=== PATIENT | female | born 1960 | race Hispanic/Latino ===

== ENCOUNTER 2017-12-04 16:18 | Emergency (ER) | payer SELFPAY ==
[2017-12-04 18:38] LABS: Absolute Lymphocytes (CBC) 1.3 K/uL (0.7-4.9); Absolute Monocytes 0.5 K/uL (0.1-1.3); Basophils % 0.4 % (0-1.3); Eosinophils % 0.4 % (0-4.4); Hematocrit 43.5 % (36.0-45.0); MCH 31.2 pg (27.0-35.0); MCV 92.8 fL (80-100); MPV 8.4 fL (7.6-11.3); Monocytes % 7.7 % (3.3-12.3); RBC Red Blood Cell Count 4.69 M/uL (3.86-4.86)
[2017-12-04 18:39] LABS: Protime INR 1.06
[2017-12-04 18:47] LABS: Bicarbonate 24 mEq/L (21-31); Glucose Level 108 mg/dL (65-120); Potassium 3.8 mEq/L (3.6-5.0); Sodium Level 137 mEq/L (135-145)
[2017-12-04 18:53] LABS: ALT/SGPT 19 IU/L (10-60); AST/SGOT 20 IU/L (10-42); Albumin 3.5 g/dL (3.2-5.5); Alkaline Phosphatase 50 IU/L (42-121); BUN Blood Urea Nitrogen 11 mg/dL (6-20); Bilirubin Direct 0.1 mg/dL (0-0.2); Bilirubin Total 0.6 mg/dL (0.3-1.2); Glomerular Filtration Rate > 90 mL/min (=/>90); Protein, Total 7.3 g/dL (6.0-8.3)
[2017-12-04 19:10] LABS: Alcohol Serum/Plasma < 10 mg/dl; Salicylates Level < 4.0 mg/dl (<30)
[2017-12-04 19:57] LABS: Barbiturates NEGATIVE; Benzodiazepines NEGATIVE; Cocaine NEGATIVE; METHAMPHETAM NEGATIVE; Opiates NEGATIVE; Phencyclidine NEGATIVE; THC Cannibis NEGATIVE
[2017-12-04 20:17] LABS: Urine Blood NEGATIVE (NEG); Urine Glucose NEGATIVE (NEG); Urine Protein NEGATIVE (NEG)
[2017-12-05] MEDS ORDERED: LORazepam 2 MG/ML VIAL ONE (00:44)
--- NOTE | 2017-12-05 10:50 | EKG ---
Test Date: 2017-12-04 Test Time: 19:16:28 [employer]: LORE MEASUREMENT RESULTS: Intervals: Rate: 78 ND: 128 QRSD: 84 QT: 420 QTc: 478 [place]: P: 44 ND: 128 QRS: 22 T: 26 INTERPRETIVE STATEMENTS: Normal sinus rhythm Possible Left atrial enlargement Nonspecific T wave abnormality Prolonged QT Abnormal ECG No previous ECG available for comparison Electronically Signed On 12-05-17 10:49:56 CDT by Janusz Preston
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
== END 2017-12-05 11:15 | disposition short-term general hospital (02) ==
LOC: ER 16:18
DX: R44.0 Auditory hallucinations (principal); Z72.0 Tobacco use
CPT/HCPCS: 36415; 80048; 80076; 80307; 80320; 80329; 81003; 81025; 85025; 85610; 85730; 93005; 96374; 99285

== ENCOUNTER 2017-12-14 00:52 | Emergency (ER) | payer SELFPAY ==
--- OUTSIDE RECORDS SUMMARY | 2017-12-14 00:55 | XMS REPORT | Clinical Summary ---
:1960 Author Organization [facility] Address [address] [place] [address] Care Team Providers Name Role Phone Asked, No Pcp Primary Care Provider Unavailable Allergies No Known Allergies Current Medications Prescription Sig. Disp. Refills Start Date End Date Status gabapentin Take 2 capsules 180 capsule 0 12/10/2017 01/09/2018 Active (NEURONTIN) 100 mg (200 mg total) capsuleIndications: by mouth 3 Anxiety (three) times a day for 30 days. hydrOXYzine (ATARAX) Take 1 tablet 30 tablet 0 12/10/2017 01/09/2018 Active 25 MG (25 mg total) by tabletIndications: mouth every 4 Anxiety (four) hours as needed for anxiety for up to 30 days. risperiDONE Take 1 tablet (2 30 tablet 0 12/10/2017 01/09/2018 Active (RisperDAL) 2 MG mg total) by tabletIndications: mouth nightly AH's for 30 days. traZODone (DESYREL) Take 1 tablet 30 tablet 0 12/10/2017 01/09/2018 Active 100 MG (100 mg total) tabletIndications: by mouth nightly insomnia associated as needed for with depression sleep for up to 30 days. nicotine polacrilex Chew 1 each (2 100 each 0 12/10/2017 01/09/2018 Active (NICORETTE) 2 mg mg total) every gumIndications: 1 (one) hour as Smoking Cessation needed for smoking cessation (nicotine cravings) for up to 30 days. Active Problems Problem Noted Date Psychosis 12/05/2017 Encounters Date Type Specialty Care Team Description 12/05/2017 - Hospital Encounter Psychiatry Kiarra Gunter MD 12/10/2017 Anam Bernard MD after 12/13/2016 Social History Tobacco Use Types Packs/Day Years Used Date Current Some Day Smoker Cigarettes 1 Started: 12/05/2013 Tobacco Cessation: Ready to Quit: No; Counseling Given: Yes Alcohol Use Drinks/Week oz/Week Comments Yes 4-6 Cans of beer 2.4 - 3.6 Sex Assigned at Date Recorded Not on file Last Filed Vital Signs Vital Sign Reading Time Taken Blood Pressure 139/85 12/10/2017 5:34 AM CDT Pulse 91 12/10/2017 5:34 AM CDT Temperature 36.5 C (97.7 F) 12/10/2017 5:34 AM CDT Respiratory Rate 18 12/09/2017 7:27 PM CDT Oxygen Saturation 96% 12/10/2017 5:34 AM CDT Inhaled Oxygen Concentration - - Weight 71.1 kg (156 lb 12.8 oz) 12/09/2017 6:15 AM CDT Height 152.4 cm (5') 12/05/2017 12:51 PM CDT Body Mass Index 30.62 12/09/2017 6:15 AM CDT Plan of Treatment Health Maintenance Due Date Last Done Comments PAP SMEAR 1980 COLONOSCOPY 2009 MAMMOGRAM 2009 INFLUENZA VACCINE 04/21/2017 Results Syphilis treponemal IgG (12/07/2017 7:00 AM) Component Value Ref Range Syphilis treponemal IgG Non-reactiveComment: Non-reactive: No Non-reactive serological evidence of Syphilis infection Specimen Performing Laboratory Serum [facility] DEPARTMENT OF PATHOLOGY AND GENOMIC MEDICINE [address] [place] [id number] Vitamin D 25 hydroxy level (12/07/2017 7:00 AM) Component Value Ref Range Vitamin D, 25-hydroxy 12.3 (L) 30.0 - 150.0 ng/mL Comment: This assay reports the sum of 25-hydroxy vitamin D3 and 25-hydroxy vitamin D2. Reference range: 0-17 years: Deficiency: less than 20ng/mL Optimum level: greater than or equal to 20 ng/mL. 18 years and older: Deficiency: less than 20ng/mL Insufficiency: 20-29 ng/mL Optimum Level: 30-80 ng/mL The assay reportable range is 3.4155.9 ng/mL. Levels higher than 150 ng/mL may be associated with toxicity. If toxicity is clinically suspected and the reported result is >155.9 ng/mL,contact lab for alternative methods to obtain a definitivelevel. If separate quantitation of 25-hydroxy vitamin D3 and 25-hydroxy vitamin D2 is needed, please contact lab for alternative methods. Specimen Performing Laboratory Blood [facility] [address] [place] [id number] HIV 1, 2 antibody (12/07/2017 7:00 AM) Component Value Ref Range HIV 1, 2 antibody Non-reactive Non-reactive Comment: Starting from December 18 2015, 4th generation HIV screening and confirmation assays are in use at [facility], consistent with the CDC-recommended algorithm. The screening test detects antibodies to HIV-1, HIV-2 and the p24 antigen. Positive screening results will be automatically reflexed to a HIV-1/HIV-2 differentiation assay. Indeterminant HIV-1 results will be further automatically reflexed to a nucleic acid test for detection of acute infection. Western blot will no longer be performed as a confirmation test. For a quick reference guide on the testing algorithm, please refer to: http://stacks.cdc.gov/view/cdc/51374. Specimen Performing Laboratory Blood [facility] [address] [place] [address] Folate level (12/07/2017 7:00 AM) Component Value Ref Range Folate 12.6 4.8 - 24.2 ng/mL Specimen Performing Laboratory Serum [facility] PATHOLOGY AND [address] [address] Vitamin B12 level (12/07/2017 7:00 AM) Component Value Ref Range Vitamin B12 >1600 (H) 211 - 946 pg/mL Comment: Significant overlap exists between normal and deficiency states. However, most patients with deficiencies will have Serum B12 <200 pg/mL. Specimen Performing Laboratory Serum [facility] DEPARTMENT OF PATHOLOGY AND GENOMIC MEDICINE [address] [place] [address] Head Wo Contrast (12/06/2017 12:54 PM) Specimen Performing Laboratory [facility] [address] [place] [address] Narrative EXAMINATION: CT HEAD WO CONTRAST CLINICAL HISTORY: CONFUSION DELERIUMALTERED LOCUNEXPLAINED COMPARISON:None TECHNIQUE: Noncontrast CT of the brain was performed from the skull base to the vertex. Both soft tissue and bone reconstruction algorithms are interpreted. CT imaging was performed with iterative reconstruction techniques and/or automated exposure control to reduce radiation dose. FINDINGS: No intracranial hemorrhage, extra-axial collection, or mass-effect is seen. No acute cortical infarct is identified. No hyperdense vessel is seen. There is paranasal sinus mucosal thickening with air-fluid levels. Mastoid air cells are clear. IMPRESSION: No acute intracranial abnormality identified. [facility]-[id number] Procedure Note [facility], Radiology Results Incoming - 12/06/2017 1:00 PM CDT EXAMINATION: CT HEAD WO CONTRAST CLINICAL HISTORY: CONFUSION DELERIUM ALTERED LOC UNEXPLAINED COMPARISON: None TECHNIQUE: Noncontrast CT of the brain was performed from the skull base to the vertex. Both soft tissue and bone reconstruction algorithms are interpreted. CT imaging was performed with iterative reconstruction techniques and/or automated exposure control to reduce radiation dose. FINDINGS: No intracranial hemorrhage, extra-axial collection, or mass-effect is seen. No acute cortical infarct is identified. No hyperdense vessel is seen. There is paranasal sinus mucosal thickening with air-fluid levels. Mastoid air cells are clear. IMPRESSION: No acute intracranial abnormality identified. [facility]-[id number] Thyroid stimulating hormone (12/06/2017 6:15 AM) Component Value Ref Range TSH 1.60 0.27 - 4.20 uIU/mL Specimen Performing Laboratory Plasma specimen [facility] DEPARTMENT OF PATHOLOGY AND GENOMIC MEDICINE [address] [place] [address] Hemoglobin A1c (12/06/2017 6:15 AM) Component Value Ref Range Hemoglobin A1C 5.7 (H) 4.0 - 5.6 % Comment: HbA1c cutoffs for diagnosing diabetes: 4.0% - 5.6%=normal 5.7% - 6.4%=increased risk for diabetes (prediabetes) >=6.5%=diabetes Goals for glycemic control (ADA 2016) < 7.0%Target for non adults with diabetes. More or less stringent targets may be appropriate for individual patients. <7.5% Target for Children and adolescents with type 1 diabetes. Specimen Performing Laboratory Blood [facility] DEPARTMENT OF PATHOLOGY AND GENOMIC MEDICINE [address] [place] [address] Lipid panel (12/06/2017 6:15 AM) Component Value Ref Range Cholesterol 137 <200 mg/dL Triglycerides 70 <150 mg/dL HDL cholesterol 43 >40 mg/dL LDL cholesterol 88Comment: Result obtained by direct LDL <100 mg/dL measurement Lipid panel interpretation SeeBelow Comment: Total Cholesterol (mg/dL) <200 Desirable [id number]-cqgs >=240High Triglycerides (mg/dL) <150 Normal 410-954Xqdcbymoms-[id number] 200-499High >=500Very high HDL Cholesterol (mg/dL) <40Low (male) <40Low (female) LDL Cholesterol (mg/dL) <100 Optimal 100-129Near or above optimal [phone]-nofr 160-189High >=190Very high Risk Catergories that modify LDL goals. Risk CatergoriesLDL goal (mg/dL) CHD and CHD risk equivalent<100 (10-year risk >20%) Multiple (2+) risk factors <130 (10-year risk=<20%) 0-1 risk factors <160 (<10-year risk) Defining levels of lipids in metabolic syndrome Triglycerides>=150 mg/dL HDL Cholesterol Men<40 mg/dL Women<40 mg/dL Non-HDL cholesterol is a second target for therapy in persons with high triglycerides (>=200 mg/dL) Specimen Performing Laboratory Plasma specimen [facility] DEPARTMENT OF PATHOLOGY AND GENOMIC MEDICINE [address] [place] [address] hCG qualitative, urine screen (12/05/2017 6:00 PM) Component Value Ref Range hCG qualitative, urine NegativeComment: Sensitivity of HCG test: 25 mIU/mL Specimen Performing Laboratory Urine [facility] DEPARTMENT OF PATHOLOGY AND GENOMIC MEDICINE [address] [place] [address] after 12/13/2016
[2017-12-14] MEDS ORDERED: ALBUTEROL 2.5 MG/3 ML NEB SOL ONE (02:17)
[2017-12-14] MEDS ORDERED: IPRATROPIUM BROM 0.5MG/2.5ML ONE (02:17)
[2017-12-14] MEDS ORDERED: METHYLPREDNISOLONE 125 MG INJ ONE (02:17)
[2017-12-14] MEDS ORDERED: HYDROCODONE/CHLORPHEN 5 ML/OSYR ONE (02:18)
[2017-12-14] MEDS ORDERED: NA CHLORIDE 0.9% 500 ML ONE (02:18)
[2017-12-14 02:23] LABS: Absolute Lymphocytes (CBC) 0.8 K/uL (0.7-4.9); Absolute Monocytes 0.6 K/uL (0.1-1.3); Absolute Neutrophil 3.3 K/uL (1.8-8.0); Basophils % 0.5 % (0-1.3); Eosinophils % 0.8 % (0-4.4); Hematocrit 40.4 % (36.0-45.0); Lymphocytes % 17.3 % (15.3-44.8); MCH 31.2 pg (27.0-35.0); MCV 90.8 fL (80-100); MPV 9.1 fL (7.6-11.3); Monocytes % 12.2 % (3.3-12.3); RBC Red Blood Cell Count 4.45 M/uL (3.86-4.86)
[2017-12-14 02:32] LABS: Potassium 3.3 mEq/L (3.6-5.0)
[2017-12-14 03:04] LABS: Arterial Blood Carboxyhemoglob 0.5 % (0-1.5); Blood Gas Oxyhemoglobin 90.8 % (94-97)
--- NOTE | 2017-12-14 03:16 | ER ---
Nurse's Notes [facility] Name: Lacey Gandara Age: 57 yrs Sex: Female : 1960 Arrival Date: 12/14/2017 Time: 00:55 Bed 5 Private MD: Diagnosis: Bronchitis. GERD Presentation: 12/14 01:12 Presenting complaint: Patient states: she has had a fever and cough for the past 20 aa1 days. Transition of care: patient was not received from another setting of care. Onset of symptoms was November 24, 2017. Care prior to arrival: None. 01:12 Method Of Arrival: Ambulatory aa1 01:12 Acuity: LEANDRO 3 aa1 Triage Assessment: 01:16 General: Appears in no apparent distress. comfortable, Behavior is calm, cooperative, aa1 appropriate for age. 02:17 Respiratory: Onset: The symptoms/episode began/occurred 21 days, the patient has ao moderate shortness of breath. Historical: - Allergies: 01:16 No Known Allergies; aa1 - Home Meds: 01:16 Trazodone Oral [Active]; gabapentin oral oral [Active]; Risperdal Oral [Active]; aa1 - PMHx: 01:16 Anxiety; psychiatric problems; aa1 - PSHx: 01:16 ; aa1 - Immunization history:: Flu vaccine is not up to date. - Social history:: Smoking status: Patient uses tobacco products, denies chronic smoking, but will smoke occasionally. Screenin:17 Abuse screen: Denies threats or abuse. Denies injuries from another. Nutritional ao screening: No deficits noted. Tuberculosis screening: No symptoms or risk factors identified. Fall Risk None identified. Assessment: 02:00 General: Appears in no apparent distress. comfortable, Behavior is calm, cooperative, ao appropriate for age. Pain: Complains of pain in chest from cough. Neuro: Level of Consciousness is awake, alert, obeys commands, Oriented to person, place, time, situation, Appropriate for age Moves all extremities. Speech is normal, Facial symmetry appears normal, Pupils are PERRLA. Cardiovascular: Heart tones Capillary refill < 3 seconds Patient's skin is warm and dry. Rhythm is regular. Respiratory: Airway is patent Respiratory effort is even, unlabored, Respiratory pattern is regular, symmetrical, Breath sounds are clear bilaterally. Respiratory: Reports shortness of breath cough that is productive. GI: Abdomen is round Bowel sounds present X 4 quads. : No signs and/or symptoms were reported regarding the genitourinary system. EENT: No signs and/or symptoms were reported regarding the EENT system. Derm: No signs and/or symptoms reported regarding the dermatologic system. Musculoskeletal: No signs and/or symptoms reported regarding the musculoskeletal system. 02:49 Reassessment: Patient appears in no apparent distress at this time. Patient and/or ao family updated on plan of care and expected duration. Pain level reassessed. Patient is alert, oriented x 3, equal unlabored respirations, skin warm/dry/pink. 03:43 Reassessment: Dc Instructions given to patient. Patient agree with the POC and to ao follow up with PCP. Vital Signs: 01:16 BP 141 / 79; Pulse 108; Resp 18; Temp 98.2; Pulse Ox 94% on R/A; Weight 66.22 kg; aa1 Height 5 ft. 5 in. (165.10 cm); Pain 0/10; 02:40 BP 124 / 68; Pulse 100; Resp 18; Pulse Ox 95% on R/A; Pain 0/10; ao 03:43 BP 116 / 66; Pulse 96; Resp 18; Pulse Ox 98% on R/A; Pain 0/10; ao 01:16 Body Mass Index 24.30 (66.22 kg, 165.10 cm) aa1 ED Course: 00:55 Patient arrived in ED. al2 01:13 Triage completed. aa1 01:16 Arm band placed on right wrist. Patient placed in waiting room, Patient notified of aa1 wait time. 01:35 Abdi Spivey, ROCIO is Primary Nurse. ao 01:41 Titi Aguilar MD is Attending Physician. pkl 02:08 Inserted saline lock: 20 gauge in right forearm, using aseptic technique. Blood ao collected. 02:13 XRAY CXR (1 view) Sent. ao 02:17 Patient has correct armband on for positive identification. Pulse ox on. NIBP on. ao 02:20 X-ray completed. Portable x-ray completed in exam room. Patient tolerated procedure kw well. 02:20 XRAY CXR (1 view) In Process Unspecified. EDMS 03:42 No provider procedures requiring assistance completed. IV discontinued, intact, ao bleeding controlled, No redness/swelling at site. Pressure dressing applied. Administered Medications: 02:12 Drug: NS 0.9% 1000 ml Route: IV; Rate: 125 ml/hr; Site: right forearm; ao 03:39 Follow up: IV Status: Completed infusion ao 02:12 Drug: Albuterol - atroVENT (3:1) (2.5 mg - 0.5 mg) 3 ml Route: Nebulizer; ao 03:16 Follow up: Response: No adverse reaction ao 02:12 Drug: SOLU-Medrol 125 mg Route: IVP; Site: right forearm; ao 03:16 Follow up: Response: No adverse reaction ao 02:12 Drug: Tussionex Pennkinetic ER 5 ml Route: PO; ao 03:16 Follow up: Response: No adverse reaction ao 03:28 Drug: Zithromax 500 mg Route: PO; ao 03:45 Follow up: Response: Medication administered at discharge. ao Outcome: 03:16 Discharge ordered by . pkl 03:43 Discharged to home ambulatory. ao 03:43 Condition: stable 03:43 Discharge instructions given to patient, Instructed on discharge instructions, follow up and referral plans. the need for admit, Demonstrated understanding of instructions, follow-up care, medications, Prescriptions given X 3. 03:44 Patient left the ED. ao Signatures: Dispatcher [employer] EDParisa Rangel RN RN aa1 Titi Aguilar MD MD pkl Whitley, Kimberlee kw Ortiz, Alex, RN RN ao Love, Angelica al2 Corrections: (The following items were deleted from the chart) 01:18 01:12 Acuity: LEANDRO 4 aa1 aa1
--- NOTE | 2017-12-14 03:16 | EDPHYS ---
Physician Documentation [facility] Name: Lacey Gandara Age: 57 yrs Sex: Female : 1960 Arrival Date: 12/14/2017 Time: 00:55 Bed 5 Private MD: ED Physician Titi Aguilar HPI: 12/14 01:50 This 57 yrs old Female presents to ER via Ambulatory with complaints of pkl Breathing Difficulty, Cough. 01:50 The patient or guardian reports cough, described as moderate, with productive sputum, pkl that is yellow, difficulty breathing. Onset: The symptoms/episode began/occurred 3 week(s) ago. Historical: - Allergies: 01:16 No Known Allergies; aa1 - Home Meds: 01:16 Trazodone Oral [Active]; gabapentin oral oral [Active]; Risperdal Oral [Active]; aa1 - PMHx: 01:16 Anxiety; psychiatric problems; aa1 - PSHx: 01:16 ; aa1 - Immunization history:: Flu vaccine is not up to date. - Social history:: Smoking status: Patient uses tobacco products, denies chronic smoking, but will smoke occasionally. ROS: 01:52 Eyes: Negative for injury, pain, redness, and discharge, ENT: Negative for injury, pkl pain, and discharge, Neck: Negative for injury, pain, and swelling, Cardiovascular: Negative for chest pain, palpitations, and edema. 01:52 Respiratory: Positive for cough, with yellow sputum, shortness of breath, wheezing. 01:52 Abdomen/GI: Negative for abdominal pain, nausea, vomiting, and diarrhea. 01:52 Back: Negative for acute changes. 01:52 : Negative for urinary symptoms. 01:52 MS/extremity: Negative for acute changes. 01:52 Skin: Negative for rash. 01:52 Neuro: Negative for altered mental status. Exam: 01:52 Head/Face: Normocephalic, atraumatic. Eyes: Pupils equal round and reactive to light, pkl extra-ocular motions intact. Lids and lashes normal. Conjunctiva and sclera are non-icteric and not injected. Cornea within normal limits. Periorbital areas with no swelling, redness, or edema. ENT: Nares patent. No nasal discharge, no septal abnormalities noted. Tympanic membranes are normal and external auditory canals are clear. Oropharynx with no redness, swelling, or masses, exudates, or evidence of obstruction, uvula midline. Mucous membranes moist. Neck: Trachea midline, no thyromegaly or masses palpated, and no cervical lymphadenopathy. Supple, full range of motion without nuchal rigidity, or vertebral point tenderness. No Meningismus. Chest/axilla: Normal chest wall appearance and motion. Nontender with no deformity. No lesions are appreciated. Cardiovascular: Regular rate and rhythm with a normal S1 and S2. No gallops, murmurs, or rubs. Normal PMI, no JVD. No pulse deficits. 01:52 Respiratory: the patient does not display signs of respiratory distress, Respirations: normal, Breath sounds: bronchial sounds, that are mild, are scattered. 01:52 Abdomen/GI: Bowel sounds: normal, Palpation: abdomen is soft and non-tender, in all quadrants. 01:52 Back: Exam negative for acute changes. 01:52 : Exam negative for acute changes. 01:52 Musculoskeletal/extremity: Exam is negative for acute changes. 01:52 Skin: Exam negative for rash. 01:52 Neuro: Orientation: is normal, Mentation: is normal, Cranial nerves: grossly normal, Motor: is normal. Vital Signs: 01:16 BP 141 / 79; Pulse 108; Resp 18; Temp 98.2; Pulse Ox 94% on R/A; Weight 66.22 kg; aa1 Height 5 ft. 5 in. (165.10 cm); Pain 0/10; 02:40 BP 124 / 68; Pulse 100; Resp 18; Pulse Ox 95% on R/A; Pain 0/10; ao 03:43 BP 116 / 66; Pulse 96; Resp 18; Pulse Ox 98% on R/A; Pain 0/10; ao 01:16 Body Mass Index 24.30 (66.22 kg, 165.10 cm) aa1 MDM: 01:41 Patient medically screened. pkl 03:15 Data reviewed: vital signs, nurses notes, lab test result(s), radiologic studies, plain pkl films. 12/14 01:49 Order name: CBC with Diff; Complete Time: 02:29 pkl 12/14 01:49 Order name: Chem 7; Complete Time: 02:49 pkl 12/14 01:49 Order name: Strep; Complete Time: 02:49 pkl 12/14 01:49 Order name: ABG; Complete Time: 03:14 pkl 12/14 01:49 Order name: XRAY CXR (1 view) pkl 12/14 03:16 Order name: Throat Culture EDMS 12/14 01:49 Order name: Saline Lock; Complete Time: 02:13 pkl Administered Medications: 02:12 Drug: NS 0.9% 1000 ml Route: IV; Rate: 125 ml/hr; Site: right forearm; ao 03:39 Follow up: IV Status: Completed infusion ao 02:12 Drug: Albuterol - atroVENT (3:1) (2.5 mg - 0.5 mg) 3 ml Route: Nebulizer; ao 03:16 Follow up: Response: No adverse reaction ao 02:12 Drug: SOLU-Medrol 125 mg Route: IVP; Site: right forearm; ao 03:16 Follow up: Response: No adverse reaction ao 02:12 Drug: Tussionex Pennkinetic ER 5 ml Route: PO; ao 03:16 Follow up: Response: No adverse reaction ao 03:28 Drug: Zithromax 500 mg Route: PO; ao 03:45 Follow up: Response: Medication administered at discharge. ao Disposition: 12/14/17 03:16 Discharged to Home. Impression: Bronchitis. GERD. - Condition is Stable. - Prescriptions for Protonix 40 mg Oral Tablet, Delayed Release (E.C.) - take 1 tablet by ORAL route once daily; 15 tablet. Zithromax Z- Michael 250 mg Oral Tablet - take 1 tablet by ORAL route as directed for 5 days Day 1 - take two (2) tablets one time. Day 2, 3, 4 , 5 take one (1) tablet once daily.; 6 tablet. Guaifenesin AC 10- 100 mg/5 mL Oral Liquid - take 10 milliliters by ORAL route every 8 hours As needed; 120 milliliter. - Medication Reconciliation Form, Thank You Letter, Antibiotic Education, Prescription Opioid Use form. - Follow up: Private Physician; When: 2 - 3 days; Reason: Re-evaluation by your physician. - Problem is new. - Symptoms have improved. Signatures: Dispatcher [facility] Parisa Dinh RN RN aa1 Titi Aguilar MD MD pkl Spivey, Abdi, RN RN ao Corrections: (The following items were deleted from the chart) 01:53 01:50 Eyes: Negative for injury, pain, redness, and discharge, ENT: Negative for pkl injury, pain, and discharge, Neck: Negative for injury, pain, and swelling, Cardiovascular: Negative for chest pain, palpitations, and edema, Respiratory: Negative for shortness of breath, cough, wheezing, and pleuritic chest pain, pkl
[2017-12-14] MEDS ORDERED: AZITHROMYCIN 250 MG TAB ONE (03:47)
--- NOTE | 2017-12-14 08:30 | RAD REPORT ---
EXAM DESCRIPTION: RAD - Chest Single View - 12/14/2017 6:55 am CLINICAL HISTORY: Cough COMPARISON: None. TECHNIQUE: AP portable chest image was obtained 0210 hours . FINDINGS: Lungs are clear. Heart and vasculature are normal. No measurable pleural effusion and no p neumothorax. No gross bony abnormality seen. No acute aortic findings suspected. IMPRESSION: No acute cardiopulmonary process.
== END 2017-12-14 03:44 | disposition home or self-care (01) ==
LOC: ER 00:52
DX: K21.9 Gastro-esophageal reflux disease without esophagitis; J40 Bronchitis, not specified as acute or chronic; F41.9 Anxiety disorder, unspecified; Z72.0 Tobacco use
CPT/HCPCS: 36415; 71045; 80048; 82805; 85025; 87070; 87081; 94640; 96361; 96374; 99284; J2930

== ENCOUNTER 2018-02-24 15:15 | Emergency (ER) | payer SELFPAY ==
--- OUTSIDE RECORDS SUMMARY | 2018-02-24 15:20 | XMS REPORT | Clinical Summary ---
:1960 Author Organization [facility] Address [address] [place] [address] Care Team Providers Name Role Phone Asked, No Pcp Primary Care Provider Unavailable Allergies No Known Allergies Current Medications Prescription Sig. Disp. Refills Start Date End Date Status gabapentin Take 2 capsules 180 capsule 0 12/10/2017 01/09/2018 (NEURONTIN) 100 mg (200 mg total) capsuleIndications: by mouth 3 Anxiety (three) times a day for 30 days. hydrOXYzine Take 1 tablet 30 tablet 0 12/10/2017 01/09/2018 (ATARAX) 25 MG (25 mg total) by tabletIndications: mouth every 4 Anxiety (four) hours as needed for anxiety for up to 30 days. risperiDONE Take 1 tablet (2 30 tablet 0 12/10/2017 01/09/2018 (RisperDAL) 2 MG mg total) by tabletIndications: mouth nightly AH's for 30 days. traZODone (DESYREL) Take 1 tablet 30 tablet 0 12/10/2017 01/09/2018 100 MG (100 mg total) tabletIndications: by mouth nightly insomnia associated as needed for with depression sleep for up to 30 days. nicotine polacrilex Chew 1 each (2 100 each 0 12/10/2017 01/09/2018 (NICORETTE) 2 mg mg total) every gumIndications: 1 (one) hour as Smoking Cessation needed for smoking cessation (nicotine cravings) for up to 30 days. Active Problems Problem Noted Date Psychosis 12/05/2017 Encounters Date Type Specialty Care Team Description 12/05/2017 - Hospital Encounter Psychiatry Kiarra Gunter MD 12/10/2017 Anam Bernard MD after 02/23/2017 Social History Tobacco Use Types Packs/Day Years [...] Health Maintenance Due Date Last Done Comments CERVICAL CANCER SCREENING 1980 BREAST CANCER SCREENING 2009 COLON CANCER SCREENING 2009 SHINGRIX VACCINE (#1) 2009 INFLUENZA VACCINE 04/21/2018 Results Syphilis treponemal IgG (12/07/2017 7:00 AM) Component Value Ref Range Syphilis treponemal IgG Non-reactiveComment: Non-reactive: No Non-reactive serological evidence of Syphilis infection Specimen Performing Laboratory Serum [facility] DEPARTMENT OF PATHOLOGY AND GENOMIC MEDICINE [address] [place] [phone] Vitamin D 25 hydroxy level (12/07/2017 7:00 [...] for alternative methods. Specimen Performing Laboratory Blood [facility] PATHOLOGY [facility] MEDICINE [address] [place] [id number] HIV 1, 2 antibody (12/07/2017 7:00 AM) Component Value Ref Range HIV 1, 2 antibody Non-reactive Non-reactive Comment: Starting from December 18 2015, 4th generation HIV screening and confirmation assays are in use at [facility], consistent with the CDC-recommended algorithm. [...] on the testing algorithm, please refer to: http://stacks.cdc.gov/view/cdc/45711. Specimen Performing Laboratory Blood [facility] DEPARTMENT OF PATHOLOGY AND [facility] MEDICINE [address] [place] [id number] Folate level (12/07/2017 7:00 AM) Component Value Ref Range Folate 12.6 4.8 - 24.2 ng/mL Specimen Performing Laboratory Serum [facility] OF PATHOLOGY AND [address] [address] Vitamin B12 level (12/07/2017 7:00 AM) Component Value Ref Range Vitamin B12 >1600 (H) 211 - 946 pg/mL Comment: Significant overlap exists between normal and deficiency states. However, most patients with deficiencies will have Serum B12 <200 pg/mL. Specimen Performing Laboratory Serum [facility] PATHOLOGY AND [facility] MEDICINE [address] [place] [phone] Head Wo Contrast (12/06/2017 12:54 PM) Specimen Performing Laboratory [address] [address] Narrative EXAMINATION: CT HEAD WO CONTRAST CLINICAL [...] clear. IMPRESSION: No acute intracranial abnormality identified. [facility]-[id number] Procedure Note Hm Interface, Radiology Results Incoming - 12/06/2017 1:00 PM [...] clear. IMPRESSION: No acute intracranial abnormality identified. [facility]-[id number] Thyroid stimulating hormone (12/06/2017 6:15 AM) Component Value Ref Range TSH 1.60 0.27 - 4.20 uIU/mL Specimen Performing Laboratory Plasma specimen [facility] DEPARTMENT OF PATHOLOGY AND GENOMIC MEDICINE [address] [place] [id number] Hemoglobin A1c (12/06/2017 6:15 AM) Component Value [...] type 1 diabetes. Specimen Performing Laboratory Blood [facility] DEPARTMENT OF PATHOLOGY AND GENOMIC MEDICINE [address] [place] [phone] Lipid panel (12/06/2017 6:15 AM) Component Value Ref Range Cholesterol 137 <200 mg/dL Triglycerides 70 <150 mg/dL HDL cholesterol 43 >40 mg/dL LDL cholesterol 88Comment: Result obtained by direct LDL <100 mg/dL measurement Lipid panel interpretation SeeBelow Comment: Total Cholesterol (mg/dL) <200 Desirable [id number] >=240High Triglycerides (mg/dL) <150 Normal [phone] 200-499High >=500Very high HDL Cholesterol (mg/dL) <40Low (male) <40Low (female) LDL Cholesterol (mg/dL) <100 Optimal 100-129Near or above optimal [phone]-bwoa 160-189High >=190Very high Risk Catergories that modify [...] (>=200 mg/dL) Specimen Performing Laboratory Plasma specimen [facility] DEPARTMENT OF PATHOLOGY AND GENOMIC MEDICINE [address] [place] [phone] hCG qualitative, urine screen (12/05/2017 6:00 PM) Component Value Ref Range hCG qualitative, urine NegativeComment: Sensitivity of HCG test: 25 mIU/mL Specimen Performing Laboratory Urine [facility] DEPARTMENT OF PATHOLOGY AND GENOMIC MEDICINE [address] [place] [phone] after 02/23/2017
[2018-02-24 16:26] LABS: Absolute Lymphocytes (CBC) 1.6 K/uL (0.7-4.9); Absolute Monocytes 0.5 K/uL (0.1-1.3); Absolute Neutrophil 5.5 K/uL (1.8-8.0); Basophils % 0.4 % (0-1.3); Eosinophils % 1.4 % (0-4.4); Hematocrit 41.4 % (36.0-45.0); MCH 30.3 pg (27.0-35.0); MCV 89.5 fL (80-100); MPV 9.2 fL (7.6-11.3); Monocytes % 6.2 % (3.3-12.3); RBC Red Blood Cell Count 4.62 M/uL (3.86-4.86)
[2018-02-24 16:32] LABS: Protime INR 0.88
[2018-02-24 16:36] LABS: Bicarbonate 25 mEq/L (21-31); Glucose Level 105 mg/dL (65-120); Potassium 3.4 mEq/L (3.6-5.0); Sodium Level 136 mEq/L (135-145)
[2018-02-24 16:41] LABS: ALT/SGPT 17 IU/L (10-60); AST/SGOT 17 IU/L (10-42); Albumin 3.8 g/dL (3.2-5.5); Alkaline Phosphatase 74 IU/L (42-121); BUN Blood Urea Nitrogen 19 mg/dL (6-20); Bilirubin Direct 0.1 mg/dL (0-0.2); Bilirubin Total 0.6 mg/dL (0.3-1.2); Protein, Total 6.8 g/dL (6.0-8.3)
[2018-02-24 16:44] LABS: Alcohol Serum/Plasma < 10 mg/dl
[2018-02-24 18:50] LABS: Urine Blood NEGATIVE (NEG); Urine Glucose NEGATIVE (NEG); Urine Protein NEGATIVE (NEG); Urine Specific Gravity 1.015 (1.005-1.030)
[2018-02-24 18:50] LABS: Barbiturates NEGATIVE (NEGATIVE); Benzodiazepines NEGATIVE (NEGATIVE); Cocaine NEGATIVE (NEGATIVE); METHAMPHETAM NEGATIVE (NEGATIVE); Opiates NEGATIVE (NEGATIVE); Phencyclidine NEGATIVE (NEGATIVE); THC Cannibis NEGATIVE (NEGATIVE)
[2018-02-24] MEDS ORDERED: POTASSIUM 25 MEQ EFFERV TAB ONE (21:09)
--- NOTE | 2018-02-24 22:38 | EKG ---
Test Date: 2018-02-24 Test Time: 15:48:25 [employer]: PRETTY MEASUREMENT RESULTS: Intervals: Rate: 64 PA: 124 QRSD: 80 QT: 444 QTc: 458 [place]: P: 55 PA: 124 QRS: 42 T: 4 INTERPRETIVE STATEMENTS: Normal sinus rhythm Possible Left atrial enlargement Nonspecific ST and T wave abnormality Abnormal ECG Compared to ECG 12/04/2017 19:16:28 ST (T wave) deviation now present T-wave abnormality no longer present Prolonged QT interval no longer present Electronically Signed On 02-24-18 22:38:26 CDT by Janusz Preston
[2018-02-25] MEDS ORDERED: POTASSIUM 25 MEQ EFFERV TAB ONE (03:24)
[2018-02-25] MEDS ORDERED: ACETAMINOPHEN 325 MG TABLET ONE (09:11)
--- NOTE | 2018-02-25 21:22 | ER ---
Nurse's Notes [facility] Name: Lacey Gandara Age: 57 yrs Sex: Female : 1960 Arrival Date: 02/24/2018 Time: 15:23 Bed 16 Private MD: Diagnosis: Suicide attempt;Suicidal ideations;Major depressive disorder, recurrent;Puerperal psychosis Presentation: 02/24 15:23 Presenting complaint: EMS states: patient was seen at the [facility] today, she is kr2 out of her medications and does not have any refills. She says she has been hearing voices for 1 week. She does not want to harm herself or anyone else but the voices have been telling her to harm herself. She takes Gabapentin, Risperidone, and Trazadone. Transition of care: patient was not received from another setting of care. Onset of symptoms was February 19, 2018. Risk Assessment: Do you want to hurt yourself or someone else? Patient reports desire/thoughts of hurting themselves or someone else. Provider notified. Initial Sepsis Screen: Does the patient meet any 2 criteria? No. Patient's initial sepsis screen is negative. Does the patient have a suspected source of infection? No. Patient's initial sepsis screen is negative. Care prior to arrival: None. 15:23 Method Of Arrival: EMS: [facility] kr2 15:23 Acuity: LEANDRO 3 kr2 Triage Assessment: 15:30 General: Appears in no apparent distress. comfortable, well groomed, well developed, kr2 well nourished, Behavior is calm, cooperative, appropriate for age. Pain: Denies pain. Historical: - Allergies: 15:28 No Known Allergies; kr2 - Home Meds: 15:28 gabapentin Oral [Active]; Risperdal Oral [Active]; Trazodone Oral [Active]; kr2 - PMHx: 15:28 Anxiety; psychiatric problems; kr2 - PSHx: 15:28 ; kr2 - Immunization history:: Adult Immunizations unknown. - Social history:: Smoking status: Patient/guardian denies using tobacco. - Ebola Screening: : No symptoms or risks identified at this time. Screenin:27 Abuse screen: Denies threats or abuse. Denies injuries from another. Nutritional kr2 screening: No deficits noted. Tuberculosis screening: No symptoms or risk factors identified. Fall Risk None identified. Assessment: 15:30 General: Appears in no apparent distress. comfortable, well groomed, well developed, kr2 well nourished, Behavior is calm, cooperative, appropriate for age. Pain: Denies pain. Neuro: Level of Consciousness is awake, alert, obeys commands, Oriented to person, place, time, situation, Appropriate for age. Cardiovascular: Capillary refill < 3 seconds in bilateral fingers Patient's skin is warm and dry. Respiratory: Airway is patent Respiratory effort is even, unlabored, Respiratory pattern is regular, symmetrical. GI: Abdomen is flat, non-distended. : Denies burning with urination. EENT: Oral mucosa is moist. Derm: Skin is intact, is healthy with good turgor, Skin is pink, warm \\T\\ dry. Musculoskeletal: Circulation, motion, and sensation intact. 15:30 Reassessment: Patient states she hears voices of multiple people telling her to harm kr2 herself in different ways. 16:30 Reassessment: Patient appears in no apparent distress at this time. Patient and/or kr2 family updated on plan of care and expected duration. Pain level reassessed. Patient is alert, oriented x 3, equal unlabored respirations, skin warm/dry/pink. Patient denies pain at this time. 17:30 Reassessment: Patient appears in no apparent distress at this time. Patient and/or kr2 family updated on plan of care and expected duration. Pain level reassessed. Patient is alert, oriented x 3, equal unlabored respirations, skin warm/dry/pink. Patient denies pain at this time. 18:30 Reassessment: Patient appears in no apparent distress at this time. Patient and/or kr2 family updated on plan of care and expected duration. Pain level reassessed. Patient is alert, oriented x 3, equal unlabored respirations, skin warm/dry/pink. Patient denies pain at this time. 19:30 Reassessment: No changes from previously documented assessment. kr2 21:02 Reassessment: No changes from previously documented assessment. Provided patient a kr2 sandwich and drink. 02/25 00:26 Reassessment: Patient appears in no apparent distress at this time. Patient and/or kr2 family updated on plan of care and expected duration. Pain level reassessed. Patient is alert, oriented x 3, equal unlabored respirations, skin warm/dry/pink. Surgeon/President here from [facility] for evaluation of patient. ROCIO Patton assisting with syriac translation. 02:10 Reassessment: Report received from ROCIO Teran Traveler. bs1 02:10 General: Appears in no apparent distress. comfortable, Behavior is calm, cooperative, bs1 appropriate for age. Pain: Denies pain. Neuro: Level of Consciousness is awake, alert, obeys commands, Oriented to person, place, time. Neuro: patient hearing voices. Cardiovascular: Denies chest pain, shortness of breath, Heart tones S1 S2 present Capillary refill < 3 seconds Patient's skin is warm and dry. Respiratory: Airway is patent Trachea midline Respiratory effort is even, unlabored, Respiratory pattern is regular, symmetrical, Breath sounds are clear bilaterally. GI: Abdomen is flat, non-distended. : No signs and/or symptoms were reported regarding the genitourinary system. EENT: Oral mucosa is moist. Derm: Skin is intact, is healthy with good turgor, Skin is pink, warm \\T\\ dry. Musculoskeletal: Circulation, motion, and sensation intact. 03:45 Reassessment: Patient and/or family updated on plan of care and expected duration. Pain bs1 level reassessed. Patient is alert, oriented x 3, equal unlabored respirations, skin warm/dry/pink. 05:00 Reassessment: No changes from previously documented assessment. Patient sleeping, no bs1 further needs at this time. Sitter at bedside. 06:22 Reassessment: No changes from previously documented assessment. Patient and/or family bs1 updated on plan of care and expected duration. Pain level reassessed. Patient is alert, oriented x 3, equal unlabored respirations, skin warm/dry/pink. Pending psych eval. No further needs at this time. 06:56 Reassessment: Report given to ROCIO Romero. bs1 07:00 General: Appears in no apparent distress. comfortable, Behavior is calm, cooperative. rb1 Pain: Denies pain. Neuro: Level of Consciousness is awake, alert, obeys commands, Oriented to person, place, time, situation. Cardiovascular: Capillary refill < 3 seconds is brisk in bilateral fingers. Respiratory: Airway is patent Respiratory effort is even, unlabored, Respiratory pattern is regular, symmetrical. GI: No signs and/or symptoms were reported involving the gastrointestinal system. : No signs and/or symptoms were reported regarding the genitourinary system. Derm: Skin is pink, warm \\T\\ dry. 08:00 Reassessment: Patient appears in no apparent distress at this time. No changes from rb1 previously documented assessment. 09:00 Reassessment: Patient appears in no apparent distress at this time. Patient and/or rb1 family updated on plan of care and expected duration. Pain level reassessed. Patient is alert, oriented x 3, equal unlabored respirations, skin warm/dry/pink. Complains of headache pain /; provider notified. 10:00 Reassessment: Patient appears in no apparent distress at this time. No changes from rb1 previously documented assessment. Sitter at bedside. 10:58 Reassessment: Patient appears in no apparent distress at this time. pt. is resting with rb1 eyes closed, respirations even, unlabored. 11:57 Reassessment: Patient appears in no apparent distress at this time. Patient and/or rb1 family updated on plan of care and expected duration. Pain level reassessed. Patient is alert, oriented x 3, equal unlabored respirations, skin warm/dry/pink. sitter at bedside. 12:30 Reassessment: CRISELDA De La Cruz tech stated, "the pt. woke up and had tears in her eyes and rb1 said that I am hearing the voices again.". 12:56 Reassessment: Patient appears in no apparent distress at this time. No changes from rb1 previously documented assessment. Sitter remains at bedside. 13:56 Reassessment: Patient appears in no apparent distress at this time. Patient and/or rb1 family updated on plan of care and expected duration. Pain level reassessed. Patient is alert, oriented x 3, equal unlabored respirations, skin warm/dry/pink. 14:55 Reassessment: Patient appears in no apparent distress at this time. No changes from rb1 previously documented assessment. Patient denies pain at this time. 15:40 Reassessment: Patient appears in no apparent distress at this time. Patient and/or rb1 family updated on plan of care and expected duration. Pain level reassessed. Patient is alert, oriented x 3, equal unlabored respirations, skin warm/dry/pink. 16:40 Reassessment: Patient appears in no apparent distress at this time. Patient and/or rb1 family updated on plan of care and expected duration. Pain level reassessed. Patient is alert, oriented x 3, equal unlabored respirations, skin warm/dry/pink. 17:38 Reassessment: Patient appears in no apparent distress at this time. Patient and/or rb1 family updated on plan of care and expected duration. Pain level reassessed. Patient is alert, oriented x 3, equal unlabored respirations, skin warm/dry/pink. 18:30 Reassessment: Patient appears in no apparent distress at this time. No changes from rb1 previously documented assessment. 19:10 Reassessment: Report received from ROCIO Romero. bs1 19:10 General: Appears in no apparent distress. comfortable, well nourished, Behavior is bs1 calm, cooperative, appropriate for age. Pain: Denies pain. Neuro: Level of Consciousness is awake, alert, obeys commands, Oriented to person, place, time, situation, Appropriate for age does not report hearing voices at this time. Cardiovascular: Denies chest pain, shortness of breath, Heart tones S1 S2 present Capillary refill < 3 seconds is brisk Patient's skin is warm and dry. Respiratory: Airway is patent Trachea midline Respiratory effort is even, unlabored, Breath sounds are clear bilaterally. GI: No signs and/or symptoms were reported involving the gastrointestinal system. : No signs and/or symptoms were reported regarding the genitourinary system. EENT: No signs and/or symptoms were reported regarding the EENT system. Derm: Skin is intact, Skin is pink, warm \\T\\ dry. Musculoskeletal: Circulation, motion, and sensation intact. Capillary refill < 3 seconds. 20:45 Reassessment: Patient appears in no apparent distress at this time. Patient and/or bs1 family updated on plan of care and expected duration. Pain level reassessed. Patient is alert, oriented x 3, equal unlabored respirations, skin warm/dry/pink. Pending transfer to [facility]. No further needs at this time. Psych: 02/24 15:30 Interventions: Removed personal items and placed in bag. Patient placed in hospital kr2 gown. Searched person for dangerous items. Suicide Risk Assessment: Sad Person Scale: Sex of patient: Female: Score 0 points. Age of patient: Score 1 point if patient is over 65. Depression: Score 0 point if signs of depression are not present. Previous Attempt: Score 0 point if patient has not previously attempted suicide. Substance Abuse: Score 0 point if patient does not abuse alcohol or drugs. Rational Thinking: Score 0 point if patient has rational thinking. Social Support: Score 1 point if social support is lacking and/or unavailable. Organized Plan: Score 0 if patient did not have an organized plan in place. Relationship: Score 1 point if patient is , , , or for a single male Chronic Sickness: Score 0 point if patient does not have a chronic illness, debilitating, or severe disorder. 15:30 Subjective: Patient's mood is sad, Delusions are denied, Hallucinations are auditory. kr2 Objective: Patient is cooperative, Speech is normal, Affect is appropriate. Pt denies substance abuse. 15:32 Safety Checks: Personal items have been removed. Door is open. No visitors are present kr2 at this time. Sitter at bedside. 02/25 21:21 Commitment: Patient will be a voluntary commitment. bs1 Vital Signs: 02/24 15:26 BP 140 / 87; Pulse 70; Resp 16; Temp 99; Pulse Ox 95% on R/A; kr2 19:00 BP 138 / 88; Pulse 74; Resp 17; Pulse Ox 97% on R/A; kr2 20:00 BP 137 / 73; Pulse 60; Resp 18; Temp 99; Pulse Ox 96% ; an 02/25 00:00 BP 129 / 79; Pulse 65; Resp 18; Temp 98.9; Pulse Ox 99% ; an 00:32 BP 135 / 78; Pulse 78; Resp 16; Pulse Ox 96% on R/A; kr2 03:58 BP 147 / 85; Pulse 66; Resp 16; Temp 98.3; Pulse Ox 97% ; an 06:00 BP 143 / 91; Pulse 62; Resp 18; Temp 98.7; Pulse Ox 98% ; an 10:00 BP 144 / 86; Pulse 71; Resp 18; Pulse Ox 96% on R/A; dh3 14:00 BP 134 / 81; Pulse 66; Resp 17; Pulse Ox 96% on R/A; dh3 19:00 BP 132 / 78; Pulse 66; Resp 16; Temp 98.3(O); Pulse Ox 100% on R/A; Pain 0/10; bs1 20:45 BP 133 / 76; Pulse 69; Resp 17; Temp 98(O); Pulse Ox 99% ; bs1 ED Course: 02/24 15:23 Patient arrived in ED. kr2 15:26 Triage completed. kr2 15:27 Adelina Gardner, RN is Primary Nurse. kr2 15:30 Safety Checks: Personal items have been removed. The door is open or patient has been kr2 placed in a hallway bed/chair. There are no family/friend visitors at this time Sitter present at this time. 15:30 Arm band placed on. kr2 15:31 Patient has correct armband on for positive identification. Bed in low position. Side kr2 rails up X2. Warm blanket given. Head of bed elevated. 15:33 Gerber Jerome NP is PHCP. pm1 15:33 Hernando Calderon MD is Attending Physician. pm1 15:48 EKG done, by auto technician mechanic. reviewed by Gerber Jerome NP. [facility] 16:02 Initial lab(s) drawn, by ri, sent to lab. Inserted saline lock: 20 gauge in left dh3 antecubital area, using aseptic technique. Blood collected. 16:45 Safety Checks: Personal items have been removed. The door is open or patient has been kr2 placed in a hallway bed/chair. There are no family/friend visitors at this time Sitter present at this time. 17:00 Safety Checks: Personal items have been removed. The door is open or patient has been kr2 placed in a hallway bed/chair. There are no family/friend visitors at this time Sitter present at this time. 17:15 Safety Checks: Personal items have been removed. The door is open or patient has been kr2 placed in a hallway bed/chair. There are no family/friend visitors at this time Sitter present at this time. 17:30 Safety Checks: Personal items have been removed. The door is open or patient has been kr2 placed in a hallway bed/chair. There are no family/friend visitors at this time Sitter present at this time. 17:45 Safety Checks: Personal items have been removed. The door is open or patient has been kr2 placed in a hallway bed/chair. There are no family/friend visitors at this time Sitter present at this time. 18:00 Safety Checks: Personal items have been removed. The door is open or patient has been kr2 placed in a hallway bed/chair. There are no family/friend visitors at this time Sitter present at this time. 18:15 Safety Checks: Personal items have been removed. The door is open or patient has been kr2 placed in a hallway bed/chair. There are no family/friend visitors at this time Sitter present at this time. 18:30 Safety Checks: Personal items have been removed. The door is open or patient has been kr2 placed in a hallway bed/chair. There are no family/friend visitors at this time Sitter present at this time. 18:45 Safety Checks: Personal items have been removed. The door is open or patient has been kr2 placed in a hallway bed/chair. There are no family/friend visitors at this time Sitter present at this time. 19:00 Safety Checks: Personal items have been removed. The door is open or patient has been kr2 placed in a hallway bed/chair. There are no family/friend visitors at this time Sitter present at this time. 19:00 Safety checks: Items removed: yes. Door open/sign placed on door: yes. Family/friend an present: no. 19:15 Safety Checks: Personal items have been removed. The door is open or patient has been kr2 placed in a hallway bed/chair. There are no family/friend visitors at this time Sitter present at this time. 19:15 Safety checks: Items removed: yes. Door open/sign placed on door: yes. Family/friend an present: no. 19:30 Safety Checks: Personal items have been removed. The door is open or patient has been kr2 placed in a hallway bed/chair. There are no family/friend visitors at this time Sitter present at this time. 19:30 Safety checks: Items removed: yes. Door open/sign placed on door: yes. Family/friend an present: no. 19:45 Safety Checks: Personal items have been removed. The door is open or patient has been kr2 placed in a hallway bed/chair. There are no family/friend visitors at this time Sitter present at this time. 19:45 Safety checks: Items removed: yes. Door open/sign placed on door: yes. Family/friend an present: no. 20:00 Safety Checks: Personal items have been removed. The door is open or patient has been kr2 placed in a hallway bed/chair. There are no family/friend visitors at this time Sitter present at this time. 20:00 Safety checks: Items removed: yes. Door open/sign placed on door: yes. Family/friend an present: no. 20:15 Safety Checks: Personal items have been removed. The door is open or patient has been kr2 placed in a hallway bed/chair. There are no family/friend visitors at this time Sitter present at this time. 20:15 Safety checks: Items removed: yes. Door open/sign placed on door: yes. Family/friend an present: no. 20:30 Safety Checks: Personal items have been removed. The door is open or patient has been kr2 placed in a hallway bed/chair. There are no family/friend visitors at this time Sitter present at this time. 20:30 Safety checks: Items removed: yes. Door open/sign placed on door: yes. Family/friend an present: no. 20:45 Safety Checks: Personal items have been removed. The door is open or patient has been kr2 placed in a hallway bed/chair. There are no family/friend visitors at this time Sitter present at this time. 20:45 Safety checks: Items removed: yes. Door open/sign placed on door: yes. Family/friend an present: no. 21:00 Safety Checks: Personal items have been removed. The door is open or patient has been kr2 placed in a hallway bed/chair. There are no family/friend visitors at this time Sitter present at this time. 21:00 Safety checks: Items removed: yes. Door open/sign placed on door: yes. Family/friend an present: no. 21:15 Safety Checks: Personal items have been removed. The door is open or patient has been kr2 placed in a hallway bed/chair. There are no family/friend visitors at this time Sitter present at this time. 21:15 Safety checks: Items removed: yes. Door open/sign placed on door: yes. Family/friend an present: no. 21:30 Safety Checks: Personal items have been removed. The door is open or patient has been kr2 placed in a hallway bed/chair. There are no family/friend visitors at this time Sitter present at this time. 21:30 Safety checks: Items removed: yes. Door open/sign placed on door: yes. Family/friend an present: no. 21:45 Safety Checks: Personal items have been removed. The door is open or patient has been kr2 placed in a hallway bed/chair. There are no family/friend visitors at this time Sitter present at this time. 21:45 Safety checks: Items removed: yes. Door open/sign placed on door: yes. Family/friend an present: no. 22:00 Safety Checks: Personal items have been removed. The door is open or patient has been kr2 placed in a hallway bed/chair. There are no family/friend visitors at this time Sitter present at this time. 22:00 Safety checks: Items removed: yes. Door open/sign placed on door: yes. Family/friend an present: no. 22:15 Safety Checks: Personal items have been removed. The door is open or patient has been kr2 placed in a hallway bed/chair. There are no family/friend visitors at this time Sitter present at this time. 22:15 Safety checks: Items removed: yes. Door open/sign placed on door: yes. Family/friend an present: no. 22:30 Safety Checks: Personal items have been removed. The door is open or patient has been kr2 placed in a hallway bed/chair. There are no family/friend visitors at this time Sitter present at this time. 22:45 Safety Checks: Personal items have been removed. The door is open or patient has been kr2 placed in a hallway bed/chair. There are no family/friend visitors at this time Sitter present at this time. 22:45 Safety checks: Items removed: yes. Door open/sign placed on door: yes. Family/friend an present: no. 23:00 Safety Checks: Personal items have been removed. The door is open or patient has been kr2 placed in a hallway bed/chair. There are no family/friend visitors at this time Sitter present at this time. 23:00 Safety checks: Items removed: yes. Door open/sign placed on door: yes. Family/friend an present: no. 23:15 Safety Checks: Personal items have been removed. The door is open or patient has been kr2 placed in a hallway bed/chair. There are no family/friend visitors at this time Sitter present at this time. 23:15 Safety checks: Items removed: yes. Door open/sign placed on door: yes. Family/friend an present: no. 23:30 Safety Checks: Personal items have been removed. The door is open or patient has been kr2 placed in a hallway bed/chair. There are no family/friend visitors at this time Sitter present at this time. 23:30 Safety checks: Items removed: yes. Door open/sign placed on door: yes. Family/friend an present: no. 23:45 Safety Checks: Personal items have been removed. The door is open or patient has been kr2 placed in a hallway bed/chair. There are no family/friend visitors at this time Sitter present at this time. 23:45 Safety checks: Items removed: yes. Door open/sign placed on door: yes. Family/friend an present: no. 02/25 00:00 Safety Checks: Personal items have been removed. The door is open or patient has been kr2 placed in a hallway bed/chair. There are no family/friend visitors at this time Sitter present at this time. 00:00 Safety checks: Items removed: yes. Door open/sign placed on door: yes. Family/friend an present: no. 00:15 Safety Checks: Personal items have been removed. The door is open or patient has been kr2 placed in a hallway bed/chair. A family member and/or friend is present and encouraged to stay. Surgeon/President from [facility] Sitter present at this time. 00:15 Safety checks: Items removed: yes. Door open/sign placed on door: yes. Family/friend an present: no. 00:30 Safety Checks: Personal items have been removed. The door is open or patient has been kr2 placed in a hallway bed/chair. A family member and/or friend is present and encouraged to stay. [facility]. 00:30 Safety checks: Items removed: yes. Door open/sign placed on door: yes. Family/friend an present: no. 00:45 Safety checks: Items removed: yes. Door open/sign placed on door: yes. Family/friend an present: no. 01:00 Safety checks: Items removed: yes. Door open/sign placed on door: yes. Family/friend an present: no. 01:15 Safety checks: Items removed: yes. Door open/sign placed on door: yes. Family/friend an present: no. 01:30 Safety checks: Items removed: yes. Door open/sign placed on door: yes. Family/friend an present: no. 01:45 Safety checks: Items removed: yes. Door open/sign placed on door: yes. Family/friend an present: no. 02:00 Safety checks: Items removed: yes. Door open/sign placed on door: yes. Family/friend an present: no. 02:15 Safety checks: Items removed: yes. Door open/sign placed on door: yes. Family/friend an present: no. 02:30 Safety checks: Items removed: yes. Door open/sign placed on door: yes. Family/friend an present: no. 02:45 Safety checks: Items removed: yes. Door open/sign placed on door: yes. Family/friend an present: no. 03:00 Safety checks: Items removed: yes. Door open/sign placed on door: yes. Family/friend an present: no. 03:15 Safety checks: Items removed: yes. Door open/sign placed on door: yes. Family/friend an present: no. 03:30 Safety checks: Items removed: yes. Door open/sign placed on door: yes. Family/friend an present: no. 03:45 Safety checks: Items removed: yes. Door open/sign placed on door: yes. Family/friend an present: no. 04:00 Safety checks: Items removed: yes. Door open/sign placed on door: yes. Family/friend an present: no. 04:15 Safety checks: Items removed: yes. Door open/sign placed on door: yes. Family/friend an present: no. 04:30 Safety checks: Items removed: yes. Door open/sign placed on door: yes. Family/friend an present: no. 04:45 Safety checks: Items removed: yes. Door open/sign placed on door: yes. Family/friend an present: no. 05:00 Safety checks: Items removed: yes. Door open/sign placed on door: yes. Family/friend an present: no. 05:15 Safety checks: Items removed: yes. Door open/sign placed on door: yes. Family/friend an present: no. 05:30 Safety checks: Items removed: yes. Door open/sign placed on door: yes. Family/friend an present: no. 05:45 Safety checks: Items removed: yes. Door open/sign placed on door: yes. Family/friend an present: no. 06:00 Safety checks: Items removed: yes. Door open/sign placed on door: yes. Family/friend an present: no. 06:15 Safety checks: Items removed: yes. Door open/sign placed on door: yes. Family/friend an present: no. 06:30 Safety checks: Items removed: yes. Door open/sign placed on door: yes. Family/friend an present: no. 06:45 Safety checks: Items removed: yes. Door open/sign placed on door: yes. Family/friend an present: no. 07:00 Safety Checks: Personal items have been removed. The door is open or patient has been rb1 placed in a hallway bed/chair. There are no family/friend visitors at this time Sitter present at this time. 07:00 Safety checks: Items removed: yes. Door open/sign placed on door: yes. Family/friend an present: no. 07:00 Sitter at bedside. rb1 07:15 Safety Checks: Personal items have been removed. The door is open or patient has been rb1 placed in a hallway bed/chair. There are no family/friend visitors at this time Sitter present at this time. 07:30 Safety Checks: Personal items have been removed. The door is open or patient has been rb1 placed in a hallway bed/chair. There are no family/friend visitors at this time Sitter present at this time. 07:45 Safety Checks: Personal items have been removed. The door is open or patient has been rb1 placed in a hallway bed/chair. There are no family/friend visitors at this time Sitter present at this time. 08:00 Safety Checks: Personal items have been removed. The door is open or patient has been rb1 placed in a hallway bed/chair. There are no family/friend visitors at this time Sitter present at this time. 08:15 Safety Checks: Personal items have been removed. The door is open or patient has been rb1 placed in a hallway bed/chair. There are no family/friend visitors at this time Sitter present at this time. 08:30 Safety Checks: Personal items have been removed. The door is open or patient has been rb1 placed in a hallway bed/chair. There are no family/friend visitors at this time Sitter present at this time. 08:45 Safety Checks: Personal items have been removed. The door is open or patient has been rb1 placed in a hallway bed/chair. There are no family/friend visitors at this time Sitter present at this time. 09:00 Safety Checks: Personal items have been removed. The door is open or patient has been rb1 placed in a hallway bed/chair. There are no family/friend visitors at this time Sitter present at this time. 09:15 Safety Checks: Personal items have been removed. The door is open or patient has been rb1 placed in a hallway bed/chair. There are no family/friend visitors at this time Sitter present at this time. 09:30 Safety Checks: Personal items have been removed. The door is open or patient has been rb1 placed in a hallway bed/chair. There are no family/friend visitors at this time Sitter present at this time. 09:45 Safety Checks: Personal items have been removed. The door is open or patient has been rb1 placed in a hallway bed/chair. There are no family/friend visitors at this time Sitter present at this time. 10:00 Safety Checks: Personal items have been removed. The door is open or patient has been rb1 placed in a hallway bed/chair. There are no family/friend visitors at this time Sitter present at this time. 10:15 Safety Checks: Personal items have been removed. The door is open or patient has been rb1 placed in a hallway bed/chair. There are no family/friend visitors at this time Sitter present at this time. 10:30 Safety Checks: Personal items have been removed. The door is open or patient has been rb1 placed in a hallway bed/chair. There are no family/friend visitors at this time Sitter present at this time. 10:45 Safety Checks: Personal items have been removed. The door is open or patient has been rb1 placed in a hallway bed/chair. There are no family/friend visitors at this time Sitter present at this time. 11:00 Safety Checks: Personal items have been removed. The door is open or patient has been rb1 placed in a hallway bed/chair. There are no family/friend visitors at this time Sitter present at this time. 11:15 Safety Checks: Personal items have been removed. The door is open or patient has been rb1 placed in a hallway bed/chair. There are no family/friend visitors at this time Sitter present at this time. 11:15 Safety checks: Items removed: yes. Door open/sign placed on door: yes. Family/friend dh3 present: no. 11:30 Safety Checks: Personal items have been removed. The door is open or patient has been rb1 placed in a hallway bed/chair. There are no family/friend visitors at this time Sitter present at this time. 11:30 Safety checks: Items removed: yes. Door open/sign placed on door: yes. Family/friend dh3 present: no. 11:45 Safety Checks: Personal items have been removed. The door is open or patient has been rb1 placed in a hallway bed/chair. There are no family/friend visitors at this time Sitter present at this time. 11:45 Safety checks: Items removed: yes. Door open/sign placed on door: yes. Family/friend dh3 present: no. 12:00 Safety Checks: Personal items have been removed. The door is open or patient has been rb1 placed in a hallway bed/chair. There are no family/friend visitors at this time Sitter present at this time. 12:00 Safety checks: Items removed: yes. Door open/sign placed on door: yes. Family/friend dh3 present: no. 12:15 Safety Checks: Personal items have been removed. The door is open or patient has been rb1 placed in a hallway bed/chair. There are no family/friend visitors at this time Sitter present at this time. 12:15 Safety checks: Items removed: yes. Door open/sign placed on door: yes. Family/friend dh3 present: no. 12:30 Safety Checks: Personal items have been removed. The door is open or patient has been rb1 placed in a hallway bed/chair. There are no family/friend visitors at this time Sitter present at this time. 12:30 Safety checks: Items removed: yes. Door open/sign placed on door: yes. Family/friend dh3 present: no. 12:45 Safety Checks: Personal items have been removed. The door is open or patient has been rb1 placed in a hallway bed/chair. There are no family/friend visitors at this time Sitter present at this time. 12:45 Safety checks: Items removed: yes. Door open/sign placed on door: yes. Family/friend dh3 present: no. 13:00 Safety Checks: Personal items have been removed. The door is open or patient has been rb1 placed in a hallway bed/chair. There are no family/friend visitors at this time Sitter present at this time. 13:06 Safety checks: Items removed: yes. Door open/sign placed on door: yes. Family/friend em1 present: no. 13:15 Safety Checks: Personal items have been removed. The door is open or patient has been rb1 placed in a hallway bed/chair. There are no family/friend visitors at this time Sitter present at this time. 13:20 Safety checks: Items removed: yes. Door open/sign placed on door: yes. Family/friend em1 present: no. 13:30 Safety Checks: Personal items have been removed. The door is open or patient has been rb1 placed in a hallway bed/chair. There are no family/friend visitors at this time Sitter present at this time. 13:30 Safety checks: Items removed: yes. Door open/sign placed on door: yes. Family/friend em1 present: no. 13:45 Safety Checks: Personal items have been removed. The door is open or patient has been rb1 placed in a hallway bed/chair. There are no family/friend visitors at this time Sitter present at this time. 13:45 Safety checks: Items removed: yes. Door open/sign placed on door: yes. Family/friend dh3 present: no. 14:00 Safety Checks: Personal items have been removed. The door is open or patient has been rb1 placed in a hallway bed/chair. There are no family/friend visitors at this time Sitter present at this time. 14:00 Safety checks: Items removed: yes. Door open/sign placed on door: yes. Family/friend dh3 present: no. 14:15 Safety Checks: Personal items have been removed. The door is open or patient has been rb1 placed in a hallway bed/chair. There are no family/friend visitors at this time Sitter present at this time. 14:15 Safety checks: Items removed: yes. Door open/sign placed on door: yes. Family/friend dh3 present: no. 14:30 Safety Checks: Personal items have been removed. The door is open or patient has been rb1 placed in a hallway bed/chair. There are no family/friend visitors at this time Sitter present at this time. 14:45 Safety Checks: Personal items have been removed. The door is open or patient has been rb1 placed in a hallway bed/chair. There are no family/friend visitors at this time Sitter present at this time. 15:00 Safety Checks: Personal items have been removed. The door is open or patient has been rb1 placed in a hallway bed/chair. There are no family/friend visitors at this time Sitter present at this time. 15:15 Safety Checks: Personal items have been removed. The door is open or patient has been rb1 placed in a hallway bed/chair. There are no family/friend visitors at this time Sitter present at this time. 15:30 Safety Checks: Personal items have been removed. The door is open or patient has been rb1 placed in a hallway bed/chair. There are no family/friend visitors at this time Sitter present at this time. 15:45 Safety Checks: Personal items have been removed. The door is open or patient has been rb1 placed in a hallway bed/chair. There are no family/friend visitors at this time Sitter present at this time. 16:00 Safety Checks: Personal items have been removed. The door is open or patient has been rb1 placed in a hallway bed/chair. There are no family/friend visitors at this time Sitter present at this time. 16:15 Safety Checks: Personal items have been removed. The door is open or patient has been rb1 placed in a hallway bed/chair. There are no family/friend visitors at this time Sitter present at this time. 16:30 Safety Checks: Personal items have been removed. The door is open or patient has been rb1 placed in a hallway bed/chair. There are no family/friend visitors at this time Sitter present at this time. 16:45 Safety Checks: Personal items have been removed. The door is open or patient has been rb1 placed in a hallway bed/chair. There are no family/friend visitors at this time Sitter present at this time. 17:00 Safety Checks: Personal items have been removed. The door is open or patient has been rb1 placed in a hallway bed/chair. There are no family/friend visitors at this time Sitter present at this time. 17:15 Safety Checks: Personal items have been removed. The door is open or patient has been rb1 placed in a hallway bed/chair. There are no family/friend visitors at this time Sitter present at this time. 17:30 Safety Checks: Personal items have been removed. The door is open or patient has been rb1 placed in a hallway bed/chair. There are no family/friend visitors at this time Sitter present at this time. 17:45 Safety Checks: Personal items have been removed. The door is open or patient has been rb1 placed in a hallway bed/chair. There are no family/friend visitors at this time Sitter present at this time. 18:00 Safety Checks: Personal items have been removed. The door is open or patient has been rb1 placed in a hallway bed/chair. There are no family/friend visitors at this time Sitter present at this time. 18:15 Safety Checks: Personal items have been removed. The door is open or patient has been rb1 placed in a hallway bed/chair. There are no family/friend visitors at this time Sitter present at this time. 18:30 Safety Checks: Personal items have been removed. The door is open or patient has been rb1 placed in a hallway bed/chair. There are no family/friend visitors at this time Sitter present at this time. 18:45 Safety Checks: Personal items have been removed. The door is open or patient has been rb1 placed in a hallway bed/chair. There are no family/friend visitors at this time Sitter present at this time. 19:00 Safety Checks: Personal items have been removed. The door is open or patient has been rb1 placed in a hallway bed/chair. There are no family/friend visitors at this time Sitter present at this time. 21:19 Attending Physician role handed off by Hernando Calderon MD cha 21:19 Maurilio Boone MD is Attending Physician. [facility] 21:20 No provider procedures requiring assistance completed. IV discontinued, bleeding bs1 controlled, No redness/swelling at site. Pressure dressing applied. Administered Medications: 02/24 21:08 Drug: Potassium Effervescent Tablet 50 mEq Route: PO; kr2 02/25 00:26 Follow up: Response: No adverse reaction kr2 03:26 Drug: Potassium Effervescent Tablet 50 mEq Route: PO; mg2 06:23 Follow up: Response: No adverse reaction bs1 09:12 Drug: Tylenol 650 mg Route: PO; rb1 09:45 Follow up: Response: No adverse reaction; Pain is decreased rb1 Outcome: 21:21 Transferred by ground EMS Transfer form completed. Note: Transferred to [facility], report bs1 given to [facility] 21:21 Condition: stable 21:21 Instructed on the need for transfer, Demonstrated understanding of instructions. 21:22 ER care complete, transfer ordered by . [facility] 21:24 Patient left the ED. bs1 Signatures: Maurilio Boone MD MD cha Martinez, Eric em1 Heather Maloney, RN RN rb1 Gerber Jerome NP [employer] pm1 Dorothy Hammer 3 Adelina Gardner RN RN kr2 Bekah Gonzalez RN RN bs1 Kiel Velazquez Michele, RN RN mg2 Flower Corea 3 Corrections: (The following items were deleted from the chart) 02/24 15:31 15:26 BP 140 / 87; Pulse 70bpm; Resp 16bpm; Pulse Ox 95% RA; kr2 kr2 02/25 00:28 06 21:02 Reassessment: No changes from previously documented assessment. kr2 kr2 02/25 06:03 00:00 BP 137 / 73; Pulse 60bpm; Resp 18bpm; Pulse Ox 96%; Temp 99F; an an 06:57 03:30 Safety checks: Items removed: Door open/sign placed on door: yes. Family/friend an present: an 15:33 15:00 BP 131 / 81; Pulse 75bpm; Resp 22bpm; Pulse Ox 97% RA; rb1 rb1
--- NOTE | 2018-02-25 21:22 | EDPHYS ---
Physician Documentation [facility] Name: Lacey Gandara Age: 57 yrs Sex: Female : 1960 Arrival Date: 02/24/2018 Time: 15:23 Bed 16 Private MD: ED Physician Maurilio Boone HPI: 02/24 16:00 This 57 yrs old Female presents to ER via EMS with complaints of Psych Problem.pm1 16:00 The patient presents to the emergency department with psychosis, has experienced pm1 auditory hallucinations, voices are telling patient to commit sucide, That she is worthless, suicide ideation, and the patient has a plan, to crash a car, voices are telling her to kill herself by crashing her car while driving. Onset: The symptoms/episode began/occurred 1.5 week(s) ago. Past psychiatric history: Prior diagnosis: schizophrenia. Associated signs and symptoms: Pertinent positives; anxiety, hallucinations, suicide ideation, Pertinent negatives: fever, homicidal ideation. Severity of symptoms: in the emergency department the symptoms are unchanged. The patient has experienced a previous episode, approximately 1 months ago. The patient has been recently seen by a physician: 2 months ago. Inpatient therapy for auditory hallucinations that were telling her to kill herself. After 10 days of medications, patient reports that the hallucination went away. However the patient ran out of medications and stopped taking them because she thought that she no longer needed them. Patient has had auditory hallucinations for about 1.5 weeks. She hears the voices of 2 men and 2 women that she used to be roommates with. The voices are telling her to kill herself. The male voices are saying lewd things to her. she does not have a psychiatrist except for the one that she saw at [facility] during her last inpatient in December 2017 . Medications: Trazodone 100 mg PO PRN at night for sleep, Risperdal 2 mg PO at night, gabapentin 200 mg PO TID. Patient out of trazodone and risperadal. Historical: - Allergies: 15:28 No Known Allergies; kr2 - Home Meds: 15:28 gabapentin Oral [Active]; Risperdal Oral [Active]; Trazodone Oral [Active]; kr2 - PMHx: 15:28 Anxiety; psychiatric problems; kr2 - PSHx: 15:28 ; kr2 - Immunization history:: Adult Immunizations unknown. - Social history:: Smoking status: Patient/guardian denies using tobacco. - Ebola Screening: : No symptoms or risks identified at this time. ROS: 16:00 Constitutional: Negative for fever, chills, and weight loss, Eyes: Negative for injury, pm1 pain, redness, and discharge, ENT: Negative for injury, pain, and discharge, Neck: Negative for injury, pain, and swelling, Cardiovascular: Negative for chest pain, palpitations, and edema, Respiratory: Negative for shortness of breath, cough, wheezing, and pleuritic chest pain, Abdomen/GI: Negative for abdominal pain, nausea, vomiting, diarrhea, and constipation, Back: Negative for injury and pain, : Negative for injury, bleeding, discharge, and swelling, MS/Extremity: Negative for injury and deformity, Skin: Negative for injury, rash, and discoloration, Neuro: Negative for headache, weakness, numbness, tingling, and seizure. 16:00 Psych: Positive for anxiety, auditory hallucinations, suicidal ideation, Negative for homicidal ideation. Exam: 16:00 Constitutional: This is a well developed, well nourished patient who is awake, alert, pm1 and in no acute distress. Head/Face: Normocephalic, atraumatic. Eyes: Pupils equal round and reactive to light, extra-ocular motions intact. Lids and lashes normal. Conjunctiva and sclera are non-icteric and not injected. Cornea within normal limits. Periorbital areas with no swelling, redness, or edema. ENT: Nares patent. No nasal discharge, no septal abnormalities noted. Tympanic membranes are normal and external auditory canals are clear. Oropharynx with no redness, swelling, or masses, exudates, or evidence of obstruction, uvula midline. Mucous membranes moist. Neck: Trachea midline, no thyromegaly or masses palpated, and no cervical lymphadenopathy. Supple, full range of motion without nuchal rigidity, or vertebral point tenderness. No Meningismus. Chest/axilla: Normal chest wall appearance and motion. Nontender with no deformity. No lesions are appreciated. Cardiovascular: Regular rate and rhythm with a normal S1 and S2. No gallops, murmurs, or rubs. Normal PMI, no JVD. No pulse deficits. Respiratory: Lungs have equal breath sounds bilaterally, clear to auscultation and percussion. No rales, rhonchi or wheezes noted. No increased work of breathing, no retractions or nasal flaring. Abdomen/GI: Soft, non-tender, with normal bowel sounds. No distension or tympany. No guarding or rebound. No evidence of tenderness throughout. Back: No spinal tenderness. No costovertebral tenderness. Full range of motion. Skin: Warm, dry with normal turgor. Normal color with no rashes, no lesions, and no evidence of cellulitis. MS/ Extremity: Pulses equal, no cyanosis. Neurovascular intact. Full, normal range of motion. 16:00 Neuro: Orientation: is normal, Mentation: is normal, Motor: moves all fours, Gait: is steady, at a normal pace, without difficulty. 16:00 Psych: Behavior/mood is pleasant, cooperative, Affect is calm. Vital Signs: 15:26 BP 140 / 87; Pulse 70; Resp 16; Temp 99; Pulse Ox 95% on R/A; kr2 19:00 BP 138 / 88; Pulse 74; Resp 17; Pulse Ox 97% on R/A; kr2 20:00 BP 137 / 73; Pulse 60; Resp 18; Temp 99; Pulse Ox 96% ; an 06/07 00:00 BP 129 / 79; Pulse 65; Resp 18; Temp 98.9; Pulse Ox 99% ; an 00:32 BP 135 / 78; Pulse 78; Resp 16; Pulse Ox 96% on R/A; kr2 03:58 BP 147 / 85; Pulse 66; Resp 16; Temp 98.3; Pulse Ox 97% ; an 06:00 BP 143 / 91; Pulse 62; Resp 18; Temp 98.7; Pulse Ox 98% ; an 10:00 BP 144 / 86; Pulse 71; Resp 18; Pulse Ox 96% on R/A; dh3 14:00 BP 134 / 81; Pulse 66; Resp 17; Pulse Ox 96% on R/A; dh3 19:00 BP 132 / 78; Pulse 66; Resp 16; Temp 98.3(O); Pulse Ox 100% on R/A; Pain 0/10; bs1 20:45 BP 133 / 76; Pulse 69; Resp 17; Temp 98(O); Pulse Ox 99% ; bs1 MDM: 02/24 15:33 Patient medically screened. pm1 20:55 Data reviewed: vital signs. Data interpreted: Pulse oximetry: on room air is 95 %. pm1 Interpretation: normal. 20:55 ED course: Contacting [facility] for evaluation and placement assistance. pm1 02/25 00:00 ED course: Recommended inpatient therapy by [facility]. pm1 00:57 Counseling: I had a detailed discussion with the patient and/or guardian regarding: the pm1 historical points, exam findings, and any diagnostic results supporting the discharge/admit diagnosis, the need to transfer to another facility, [facility] does not immediately have the required specialist. 02/24 15:33 Order name: Acetaminophen; Complete Time: 18:54 pm1 02/24 15:33 Order name: Basic Metabolic Panel; Complete Time: 18:54 pm1 02/24 15:33 Order name: CBC with Diff; Complete Time: 16:29 pm1 02/24 15:33 Order name: ETOH Level; Complete Time: 18:54 pm1 02/24 15:33 Order name: Hepatic Function; Complete Time: 18:54 pm1 02/24 15:33 Order name: PT-INR; Complete Time: 18:54 pm1 02/24 15:33 Order name: Ptt, Activated; Complete Time: 18:54 pm1 02/24 15:33 Order name: Salicylate; Complete Time: 18:54 pm1 02/24 15:33 Order name: Urine Drug Screen; Complete Time: 18:54 pm1 02/24 18:31 Order name: Urine Dipstick--Ancillary (enter results); Complete Time: 18:54 em1 02/24 18:31 Order name: Urine --Ancillary (enter results); Complete Time: 18:54 em1 02/25 01:04 Order name: Potassium; Complete Time: 03:17 pm1 02/24 15:33 Order name: Urine Test (obtain specimen); Complete Time: 18:38 pm1 02/24 15:33 Order name: EKG; Complete Time: 15:33 pm1 02/24 15:33 Order name: EKG - Nurse/Tech; Complete Time: 18:38 pm1 02/24 15:33 Order name: IV Saline Lock; Complete Time: 18:38 pm1 02/24 15:33 Order name: Labs collected and sent; Complete Time: 18:38 pm1 02/24 15:33 Order name: Urine Dipstick-Ancillary (obtain specimen); Complete Time: 18:38 pm1 02/25 07:27 Order name: Diet Regular; Complete Time: 07:28 rb1 02/25 11:40 Order name: Diet Regular; Complete Time: 11:40 rb1 02/25 16:26 Order name: Diet Regular; Complete Time: 16:27 rb1 Administered Medications: 02/24 21:08 Drug: Potassium Effervescent Tablet 50 mEq Route: PO; kr2 02/25 00:26 Follow up: Response: No adverse reaction kr2 03:26 Drug: Potassium Effervescent Tablet 50 mEq Route: PO; mg2 06:23 Follow up: Response: No adverse reaction bs1 09:12 Drug: Tylenol 650 mg Route: PO; rb1 09:45 Follow up: Response: No adverse reaction; Pain is decreased rb1 Disposition: 02/26 06:35 Co-signature as Attending Physician, Maurilio Boone MD I agree with the assessment and [facility] plan of care. Disposition: 02/25/18 21:22 Transfer ordered to Psych Facility. Diagnosis are Suicide attempt, Suicidal ideations, Major depressive disorder, recurrent, Puerperal psychosis. - Reason for transfer: Higher level of care. - Accepting physician is to psych. - Condition is Stable. - Problem is new. - Symptoms have improved. Signatures: Dispatcher [employer] Maurilio King MD MD cha Barber, Rebecca, RN RN rb1 Gerber Jerome, [employer] pm1 Adelina Gardner RN RN kr2 Bekah Gonzalez RN RN bs1 Kamaljit Aguirre RN RN mg2 Corrections: (The following items were deleted from the chart) 02/25 21:24 21:22 02/25/2018 21:22 Transfer ordered to Psych Facility. Diagnosis is Suicide bs1 attempt; Suicidal ideations; Major depressive disorder, recurrent; Puerperal psychosis. Reason for transfer: Higher level of care. Accepting physician is to psych. Condition is Stable. Problem is new. Symptoms have improved. ganesh
== END 2018-02-25 21:24 ==
LOC: ER 15:15
DX: R45.851 Suicidal ideations (principal); F33.9 Major depressive disorder, recurrent, unspecified; F28 Other psychotic disorder not due to a substance or known physiological condition
CPT/HCPCS: 36415; 80048; 80076; 80307; 80320; 80329; 81003; 81025; 84132; 85025; 85610; 85730; 93005; 99285